=== PATIENT | male | born 1965 | race Caucasian/White ===

== ENCOUNTER 2020-06-15 08:19 | Day surgery (SDC) | payer OTHER, SELFPAY ==
[~2020-06-15] VITALS: Ht 170.2 cm; Wt 89.8 kg
[2020-06-15] MEDS ORDERED: fentaNYL citrate 0.05 MG/ML VIAL ONE (09:47)
[2020-06-15] MEDS ORDERED: LIDOCAINE 2% 100 MG/5 ML UJET TP ONE ×2 (09:47→13:20)
[2020-06-15] MEDS ORDERED: fentaNYL citrate 0.05 MG/ML VIAL IVP ONE (13:15)
== END 2020-06-15 11:00 | disposition home or self-care (01) ==
LOC: MFCC 08:19 → MDS 08:19
PROVIDERS: ATTEND Internal Medicine Gastroenterology
DX: Z12.11 Encounter for screening for malignant neoplasm of colon (principal); E66.9 Obesity, unspecified; Z68.30 Body mass index [BMI] 30.0-30.9, adult; Z20.828 Contact with and (suspected) exposure to other viral communicable diseases; E78.00 Pure hypercholesterolemia, unspecified; Z98.890 Other specified postprocedural states; Z79.82 Long term (current) use of aspirin; Z79.899 Other long term (current) drug therapy
CPT/HCPCS: 45378; J3010; U0003

== ENCOUNTER 2022-09-12 07:43 | Day surgery (SDC) | payer OTHER ==
[~2022-09-12] VITALS: Ht 172.7 cm; Wt 86.2 kg
[2022-09-12] MEDS ORDERED: MIDAZOLAM 5 MG/5 ML VIAL ONE (09:09)
[2022-09-12] MEDS ORDERED: fentaNYL citrate 0.05 MG/ML VIAL ONE (09:09)
[2022-09-12] MEDS ORDERED: MIDAZOLAM 2 MG/2 ML VIAL IVP ONE (10:25)
== END 2022-09-12 10:30 | disposition home or self-care (01) ==
LOC: MOR 07:43 → MMU 07:44 → MOR 10:30
PROVIDERS: ATTEND Internal Medicine Gastroenterology
DX: R13.10 Dysphagia, unspecified (principal); Z20.822 Contact with and (suspected) exposure to COVID-19
CPT/HCPCS: 43239; 87426; J2250; J3010